=== PATIENT | female | born 1970 | race Caucasian/White ===

== ENCOUNTER → 2018-12-26 | Outpatient (CLI) | payer OTHER | LOC: M.RAD 14:00 | DX: Z12.31 Encounter for screening mammogram for malignant neoplasm of breast (principal) ==

== ENCOUNTER → 2019-01-01 | Outpatient (CLI) | payer OTHER | LOC: M.RAD 09:35 | DX: R92.0 Mammographic microcalcification found on diagnostic imaging of breast (principal) ==

== ENCOUNTER → 2019-01-05 | Outpatient (CLI) | payer OTHER ==
--- NOTE | 2019-01-08 10:06 | PATH ---
[address] [address] PATHOLOGY RPT PROCEDURE Name: MITCHELL QUEZADA Room: [facility] Tay#: [id number] Admission: 01/05/19 Date of : 72 Discharge: Report #: [id number] Path Case #: [id number] [facility] Accession Number: [id number] . 01 Material submitted: . breast - RIGHT BREAST TISSUE WITH CALCIFICATIONS. Modifiers: right . 01 Clinical history: . Right stereotactic breast BX for right breast calcifications . 02 Diagnosis: Right breast tissue with calcifications, stereotactic biopsy: - Benign breast tissue with usual ductal epithelial hyperplasia, duct ectasia, fibrosis, and luminal calcification, negative for atypia. See comment. (TERRANCE:pit 01/07/2019) QTP/01/07/2019 . 02 Comment: Reviewed with Dr. Lizzy Mariee who agrees with the diagnosis. (TERRANCE:pit 01/07/2019) . 02 Electronically signed: . Cristóbal Villa MD, Pathologist NPI- [id number] . 01 Gross description: . Received in formalin labeled "Mitchell Quezada, right breast calcifications," are multiple needle cores of yellow-betancourt fibrofatty tissue measuring 1.8 x 1.4 x 0.5 cm in aggregate dimensions. Additionally received in the same container is a blue plastic cassette containing multiple needle cores of yellow-betancourt fibrofatty tissue measuring 3.5 x 2.6 x 0.6 cm in aggregate dimensions. The tissue in the cassette is transferred to cassettes A1 and A2 and the remaining tissue is submitted in its entirety in cassettes A3 and A4. The cold ischemic time is 13 minutes. The total formalin fixation time is greater than 7 hours and less than 72 hours. (TSD; 01/05/2019) TOB/TOB . 02 Pathologist provided ICD-10: N62, N60.41, N60.31 . 02 CPT . 301425 Specimen Comment: A courtesy copy of this report has been sent to Specimen Comment: [phone], , , . Specimen Comment: Report sent to ,DR MORELAND,DR JOVEL / [place] [address] PATHOLOGY RPT PROCEDURE Name: MITCHELL QUEZADA CLARIBEL [id number] Admission: 01/05/19 Date of : 72 Discharge: Report #: [id number] Path Case #: [id number] Performed at: 01 [facility] [place] [address], [place] [id number] MD Thom Verdugo MD Phone: [phone] Performed at: 02 [facility] [address], [place], [place] [id number] MD Cristóbal Villa MD Phone: [phone]
== END | disposition home or self-care (01) ==
LOC: M.RAD 09:49
DX: N60.31 Fibrosclerosis of right breast (principal); N60.41 Mammary duct ectasia of right breast; R92.0 Mammographic microcalcification found on diagnostic imaging of breast; N62 Hypertrophy of breast

== ENCOUNTER → 2020-04-01 | Outpatient (CLI) | payer OTHER | LOC: M.RAD 12:55 | PROVIDERS: ATTEND Obstetrics & Gynecology | DX: Z12.31 Encounter for screening mammogram for malignant neoplasm of breast (principal) ==